=== PATIENT | female | born 1940 | race Caucasian/White ===

== ENCOUNTER 2017-06-18 13:15 | Outpatient (CLI) | payer MEDICARE, OTHER ==
--- NOTE | 2017-06-18 14:59 | RAD ---
TWO VIEW CHEST: Comparison: 11-20-16 Clinical history: Dyspnea. FINDINGS: There are abnormal multifocal patchy airspace opacities involving the linear parenchymal densities wi thin each lung. Findings are not significantly changed from November 2016. An enlarged cardiac silho uette is re-demonstrated. Stable prominence of the hilar regions. IMPRESSION: Stable radiographic appearance of the chest with re-demonstration of multifocal parenchymal opacities throughout each lung. Recommend clinical correlation. Imaging follow up would also prove useful. POS: JE
== END 2017-06-18 13:16 | disposition home or self-care (01) ==
LOC: RAD 13:15
PROVIDERS: ATTEND Internal Medicine Critical Care Medicine
DX: R06.00 Dyspnea, unspecified (principal); R91.8 Other nonspecific abnormal finding of lung field
CPT/HCPCS: 71046

== ENCOUNTER 2017-08-15 08:52 | Outpatient (CLI) | payer MEDICARE, OTHER | END 2017-08-15 08:53 | disposition home or self-care (01) | LOC: CP 08:52 | PROVIDERS: ATTEND Internal Medicine Critical Care Medicine | DX: J84.10 Pulmonary fibrosis, unspecified (principal); J98.4 Other disorders of lung | CPT/HCPCS: 94060; 94727; 94729 ==

== ENCOUNTER 2017-09-17 09:25 | Outpatient (CLI) | payer MEDICARE, OTHER | END 2017-09-17 09:26 | disposition home or self-care (01) | LOC: BICMAMMO 09:25 | PROVIDERS: ATTEND Obstetrics & Gynecology | DX: Z12.31 Encounter for screening mammogram for malignant neoplasm of breast (principal); Z13.820 Encounter for screening for osteoporosis; M81.0 Age-related osteoporosis without current pathological fracture | CPT/HCPCS: 77063; 77067; 77080 ==

== ENCOUNTER 2018-02-11 10:45 | Outpatient (CLI) | payer MEDICARE, OTHER ==
--- NOTE | 2018-02-11 15:52 | RAD ---
CHEST TWO VIEWS: INDICATIONS: History of dyspnea. FINDINGS: The area of interstitial fibrotic change and scarring involving both lungs is stable. There are mult ifocal areas of patchy nodular densities throughout both lungs, which is stable. This is seen predom inantly in the lower lobes. CT followup is recommended for additional characterization. There is st able moderate cardiomegaly. IMPRESSION: 1. Stable patchy areas of nodular parenchymal opacities seen throughout both lungs, predominantly in the lower lobe. Dedicated CT of the thorax is recommended for additional evaluation. 2. Stable moderate cardiomegaly. 3. Stable emphysematous change. POS: [facility]
== END 2018-02-11 10:46 | disposition home or self-care (01) ==
LOC: RAD 10:45
PROVIDERS: ATTEND Internal Medicine Critical Care Medicine
DX: R06.00 Dyspnea, unspecified (principal); I51.7 Cardiomegaly; R91.8 Other nonspecific abnormal finding of lung field
CPT/HCPCS: 71046

== ENCOUNTER 2018-08-05 08:50 | Outpatient (CLI) | payer MEDICARE, OTHER ==
--- NOTE | 2018-08-05 09:28 | RAD ---
CHEST 2 VIEWS: Date: 08/05/18 HISTORY: Dyspnea. COMPARISON: 02/11/18. FINDINGS: Stable linear and reticulonodular parenchymal changes noted bilaterally. Heart size is upper range of normal. No confluent pneumonia, overt edema, or pleural effusion. Stable right reverse shoulder arth roplasty. IMPRESSION: Stable bilateral chronic lung changes. Borderline size heart. No significant acute process. POS: [facility]
== END 2018-08-05 08:51 | disposition home or self-care (01) ==
LOC: RAD 08:50
PROVIDERS: ATTEND Internal Medicine Critical Care Medicine
DX: R06.00 Dyspnea, unspecified (principal)
CPT/HCPCS: 71046

== ENCOUNTER 2018-09-30 10:48 | Outpatient (CLI) | payer MEDICARE, OTHER ==
--- NOTE | 2018-09-30 12:55 | MMO ---
Bilateral MAMMO Bilat Screen [facility]. CLINICAL HISTORY: Patient is 78 years old and is seen for screening. The patient has no family history of breast cancer. The patient has no personal history of cancer. The patient has a history of right Excisional Biopsy more than 10 years ago - benign. VIEWS: The views performed were: bilateral craniocaudal with tomosynthesis; bilateral mediolateral oblique with tomosynthesis; and left craniocaudal. FILMS COMPARED: The present examination has been compared to a prior imaging study performed at [facility] on 09/17/2017. MAMMOGRAM FINDINGS: There are scattered fibroglandular densities. There are stable benign appearing calcifications seen in both breasts. There are no suspicious masses, suspicious calcifications, or new areas of architectural distortion. IMPRESSION: THERE IS NO MAMMOGRAPHIC EVIDENCE OF MALIGNANCY. A ROUTINE FOLLOW-UP MAMMOGRAM IN 1 YEAR IS RECOMMENDED. THE RESULTS OF THIS EXAM WERE SENT TO THE PATIENT. ACR BI-RADS Category 2 - Benign finding MAMMOGRAPHY NOTE: 1. A negative mammogram report should not delay a biopsy if a dominant of clinically suspicious mass is present. 2. Approximately 10% to 15% of breast cancers are not detected by mammography. 3. Adenosis and dense breasts may obscure an underlying neoplasm. Reported by: KARINA ALVARADO MD Electonically Signed: [id number]
== END 2018-09-30 10:49 | disposition home or self-care (01) ==
LOC: BICMAMMO 10:48
PROVIDERS: ATTEND Internal Medicine
DX: Z12.31 Encounter for screening mammogram for malignant neoplasm of breast (principal); Z91.89 Other specified personal risk factors, not elsewhere classified
CPT/HCPCS: 77063; 77067

== ENCOUNTER 2019-01-29 10:38 | Outpatient (CLI) | payer MEDICARE, OTHER ==
--- NOTE | 2019-01-29 10:57 | RAD ---
EXAM: Chest PA and lateral: HISTORY: Dyspnea COMPARISON: 08/05/2018 FINDINGS: Heart: Cardiomegaly. Aorta: Atherosclerosis of the aorta Pulmonary vessels: Normal Costophrenic angles: Costophrenic angles are clear. Lungs: Stable linear opacities throughout the lung parenchyma. Persistent opacity in the medial right upper lobe. Hyperinflation Pneumothorax: No pneumothorax Osseous structures: No acute osseous abnormalities. Right shoulder arthroplasty is noted. IMPRESSION: No significant interval change. Stable opacification the lung parenchyma.
== END 2019-01-29 10:39 | disposition home or self-care (01) ==
LOC: RAD 10:38
PROVIDERS: ATTEND Internal Medicine Critical Care Medicine
DX: R06.00 Dyspnea, unspecified (principal); R91.8 Other nonspecific abnormal finding of lung field
CPT/HCPCS: 71046

== ENCOUNTER 2019-07-28 10:29 | Outpatient (CLI) | payer MEDICARE, OTHER ==
--- NOTE | 2019-07-28 11:19 | RAD ---
EXAM: Chest PA and lateral: HISTORY: Dyspnea COMPARISON: 07/09/2014, 01/29/2019 FINDINGS: Heart: Upper normal cardiac silhouette. Aorta: Atherosclerosis Pulmonary vessels: Normal Costophrenic angles: Costophrenic angles are clear. Lungs: Chronic lung parenchymal changes, without mass or consolidation. Persistent opacification the medial right upper lobe. Pneumothorax: No pneumothorax Osseous structures: Redemonstration of a right humeral prosthesis IMPRESSION: 1. Atherosclerosis 2. Chronic lung parenchymal changes. 3. No acute cardiopulmonary process.
== END 2019-07-28 10:30 | disposition home or self-care (01) ==
LOC: RAD 10:29
PROVIDERS: ATTEND Internal Medicine Critical Care Medicine
DX: R06.00 Dyspnea, unspecified (principal); I70.0 Atherosclerosis of aorta; J98.4 Other disorders of lung
CPT/HCPCS: 71046

== ENCOUNTER 2019-10-06 10:49 | Outpatient (CLI) | payer MEDICARE, OTHER ==
--- NOTE | 2019-10-06 11:18 | MMO ---
Bilateral MAMMO Bilat Screen [facility]. CLINICAL HISTORY: Patient is 79 years old and is seen for screening. The patient has no family history of breast cancer. The patient has no personal history of cancer. The patient has a history of right Excisional Biopsy more than 10 years ago - benign. VIEWS: The views performed were: bilateral craniocaudal with tomosynthesis and bilateral mediolateral oblique with tomosynthesis. FILMS COMPARED: The present examination has been compared to prior imaging studies performed at [facility] on 09/17/2017 and 09/30/2018. This study has been interpreted with the assistance of computer-aided detection. MAMMOGRAM FINDINGS: There are scattered fibroglandular densities. There are stable benign appearing calcifications seen in both breasts. There are also vascular calcifications. There are no suspicious masses, suspicious calcifications, or new areas of architectural distortion. IMPRESSION: THERE IS NO MAMMOGRAPHIC EVIDENCE OF MALIGNANCY. A ROUTINE FOLLOW-UP MAMMOGRAM IN 1 YEAR IS RECOMMENDED. THE RESULTS OF THIS EXAM WERE SENT TO THE PATIENT. ACR BI-RADS Category 2 - Benign finding MAMMOGRAPHY NOTE: 1. A negative mammogram report should not delay a biopsy if a dominant of clinically suspicious mass is present. 2. Approximately 10% to 15% of breast cancers are not detected by mammography. 3. Adenosis and dense breasts may obscure an underlying neoplasm. Reported by: STELLA QURESHI MD Electonically Signed: [id number]
== END 2019-10-06 10:50 | disposition home or self-care (01) ==
LOC: BICMAMMO 10:49
PROVIDERS: ATTEND Internal Medicine
DX: Z12.31 Encounter for screening mammogram for malignant neoplasm of breast (principal); Z91.89 Other specified personal risk factors, not elsewhere classified
CPT/HCPCS: 77063; 77067

== ENCOUNTER 2020-02-10 10:20 | Outpatient (CLI) | payer MEDICARE, OTHER ==
--- NOTE | 2020-02-10 10:51 | RAD ---
Chest 2 views HISTORY: Dyspnea. Follow-up. COMPARISON: 07/28/2019. FINDINGS: Cardiac silhouette is upper limits of normal in size. Pulmonary vasculature are unremarkabl e. Mediastinum is midline with aortic calcification. Scattered areas of linear parenchymal scarring are again demonstrated. Peripheral linear interstitial thickening is more pronounced than on the prior study. Lungs remain hyperinflated. No lobar consolidation, pleural fluid, or pneumothorax are apparent. Prominent degenerative changes o f the thoracic spine. Right shoulder prosthesis partially visualized. IMPRESSION : Interval radiographic progression of peripheral interstitial thickening/lung disease. Findings are otherwise stable.
== END 2020-02-10 10:21 | disposition home or self-care (01) ==
LOC: BICRAD 10:20
PROVIDERS: ATTEND Internal Medicine Critical Care Medicine
DX: R06.00 Dyspnea, unspecified (principal)
CPT/HCPCS: 71046

== ENCOUNTER 2020-05-12 14:52 | Emergency (ER) | payer MEDICARE, OTHER ==
--- NOTE | 2020-05-12 16:37 | RAD ---
EXAM: 3 views of the lumbosacral spine HISTORY: Low back pain since Saturday evening COMPARISON: None FINDINGS: 3 views of the lumbosacral spine shows normal height and alignment of the vertebral bodies and intervertebral discs without fracture or subluxation. Moderate osteophyte formation is seen throughout the lumbar spine. Posterior facet arthrosis is seen in the lower lumbosacral spine. The sacroiliac joints are unremarkable. There is a calcification the right abdomen. This could repres ent a gallstone or renal calcification. Vascular calcifications are seen. IMPRESSION: Moderate degenerative changes of the lumbar spine without acute osseous abnormality.
--- NOTE | 2020-05-12 18:30 | MRI ---
MR the lumbar spine without contrast INDICATION: Low back pain COMPARISON: Lumbar spinal radiographs dated May 12, 2020 TECHNIQUE: Multiplanar multisequence MR images were obtained of lumbar spine without IV contrast. FINDINGS: Bone marrow: There is an acute mild right lateral superior endplate compression abnormality of L2 on image 8 of series 4 and image 8 of series 3. There are chronic superior endplate compression abnormalities involving T11 and T12. Distal spinal cord and conus: Normal. The conus seen to terminate at L1. Visualized retroperitoneum and paraspinal soft tissues: There is a 1.1 cm T2 hyperintense lesion seen within the medial aspect of the posterior mid right kidney. No hydronephrosis is evident. No free fluid is evident. There are scattered colonic diverticulosis. Vertebral levels: L5-S1: There is an asymmetric to the right broad-based disc bulge with facet osteoarthrosis inducing moderate narrowing of the right lateral recess with contact and potential for impingement of the traversing right S1 nerve root. There is mild right neural foraminal narrowing.. L4-5: No appreciable central canal or neuroforaminal narrowing. L3-4: There is a broad-based disc osteophyte complex with facet hypertrophy inducing mild central can al narrowing and mild right neural foraminal narrowing. L2-3: There is a broad-based disc osteophyte complex inducing inducing mild central canal narrowing m ild bilateral neural foraminal narrowing. L1-L2: There is a mild broad-based bulge but no appreciable central canal or neural foraminal narrowi ng. T12-L1: There is a broad-based disc osteophyte complex without appreciable central canal narrowing. T here is mild right neural foraminal narrowing. IMPRESSION: 1. Acute mild right lateral superior endplate compression abnormality of L2. 2. Chronic T11 and T12 compression abnormalities. 3. Moderate lumbar spondylosis. There is moderate right lateral recess narrowing at L5-S1 with contac t and potential for impingement of the traversing right S1 nerve root due to a broad-based disc bulge and facet hypertrophy. Mild right neural foraminal narrowing is seen at L5-S1, L3-4 and T12-L1. There is mild bilateral neural foraminal narrowing at L2-3. 4. T2 hyperintensity within the right mid kidney is incompletely characterized. Nonemergent follow-up renal ultrasound is recommended for additional characterization.
[2020-05-12] MEDS ORDERED: Morphine 4 MG/ML VIAL ONE (21:27)
== END 2020-05-12 22:01 | disposition home or self-care (01) ==
LOC: ERS 14:52
DX: M48.56XA Collapsed vertebra, not elsewhere classified, lumbar region, initial encounter for fracture (principal); E78.5 Hyperlipidemia, unspecified; I10 Essential (primary) hypertension
CPT/HCPCS: 72100; 72148; 96372; J2270

== ENCOUNTER 2020-09-14 12:57 | Outpatient (CLI) | payer MEDICARE, OTHER | END 2020-09-14 12:58 | disposition home or self-care (01) | LOC: BICRAD 12:57 | PROVIDERS: ATTEND Internal Medicine Critical Care Medicine | DX: R06.00 Dyspnea, unspecified (principal); J84.10 Pulmonary fibrosis, unspecified | CPT/HCPCS: 71046 ==

== ENCOUNTER 2021-02-09 15:37 | Inpatient (IN) | payer MEDICARE, OTHER ==
[2021-02-09] MEDS ORDERED: Morphine 4 MG/ML VIAL ONE (15:52)
[2021-02-09 16:19] LABS: #Basophils 0.1 thou/uL (0.0-0.2); #Eosinphils 0.4 thou/uL (0.0-0.7); #Lymphocytes 2.1 thou/uL (1.20-3.40); #Monocytes 0.9 thou/uL (0.11-0.59); #Neutrophils 4.7 thou/uL (1.40-6.50); %Basophils 0.7 % (0.0-1.0); %Eosinophils 5.1 % (0.0-10.0); %Lymphocytes 26.1 % (21.0-51.0); %Monocytes 10.4 % (0.0-10.0); %Neutrophils 57.7 % (42.0-75.0); Hemoglobin 11.1 g/dL (12.0-16.0); Mean Corpuscular Hemoglobin 27.2 pg (27.0-31.0); Mean Corpuscular Volume 85.2 fL (78.0-98.0); Mean Platelet Volume 8.4 fL (7.4-10.4); Platelet Count 232 thou/uL (130-400); RBC Distribution Width 16.2 % (11.5-14.5); Red Blood Cell (RBC) Count 4.07 mill/uL (4.20-5.40); White Blood Cell (WBC) Count 8.2 thou/uL (4.8-10.8)
[2021-02-09 16:30] LABS: PTT 43.2 sec (22.9-36.1); Prothrombin Time 23.2 sec (12.0-14.7)
[2021-02-09 16:41] LABS: ALT (SGPT) 14 U/L (8-55); AST (SGOT) 25 U/L (5-34); Albumin 3.6 g/dL (3.4-4.8); Alkaline Phosphatase 112 U/L (40-110); Anion Gap 16 mmol/L (10-20); BUN (Urea Nitrogen) 42 mg/dL (9.8-20.1); Bilirubin, Total 0.6 mg/dL (0.2-1.2); Calc. Creatinine Clearance 0 mL/min (70-130); Calcium 9.3 mg/dL (7.8-10.44); Carbon Dioxide 25 mmol/L (23-31); Chloride 103 mmol/L (98-107); Globulin 4.6 g/dL (2.4-3.5); Glucose 108 mg/dL (83-110); Potassium 4.4 mmol/L (3.5-5.1); Protein, Total 8.2 g/dL (5.8-8.1); Sodium 140 mmol/L (136-145)
[2021-02-09] MEDS ORDERED: Ondansetron PF 4 MG/2 ML Vial IVP PRN (16:47)
[2021-02-09] MEDS ORDERED: hydrALAZINE 20 MG/ML VIAL SLOW IVP PRN (16:49)
[2021-02-09] MEDS ORDERED: Morphine 4 MG/ML VIAL SLOW IVP PRN (16:52)
[2021-02-09] MEDS ORDERED: traMADol HCl 50 MG TAB PO PRN (16:53)
[2021-02-09] MEDS ORDERED: Cyclobenzaprine 10 MG TAB PO PRN (16:53)
[2021-02-09 17:49] LABS: SARS-CoV-2 NAA Rapid Test Not Detected (NotDetected)
[2021-02-09 18:44] VITALS: BMI 32.1
[2021-02-09] MEDS: traMADol HCl 50 MG TAB PO SCH (18:56)
[2021-02-09] MEDS: Acetaminophen 500 MG TAB PO SCH ×2 (18:56→22:49)
[2021-02-09] MEDS: Gabapentin 100 MG CAP PO SCH (21:06)
[2021-02-09] MEDS: Senokot S 8.6-50 MG TAB PO SCH (21:07)
[2021-02-09] MEDS: Sodium Chloride 0.9% 1,000 ML IV SCH (21:08)
[2021-02-09] MEDS: Famotidine/PF 20 mg/2ml Vial SLOW IVP SCH (21:08)
[2021-02-10] MEDS: traMADol HCl 50 MG TAB PO SCH (00:15)
[2021-02-10] MEDS ORDERED: traMADol HCl 50 MG TAB PO PRN ×2 (04:07)
[2021-02-10] MEDS: Sodium Chloride 0.9% 1,000 ML IV SCH (04:38)
[2021-02-10 05:57] LABS: #Basophils 0.1 thou/uL (0.0-0.2); #Eosinphils 0.4 thou/uL (0.0-0.7); #Lymphocytes 1.8 thou/uL (1.20-3.40); #Monocytes 0.9 thou/uL (0.11-0.59); #Neutrophils 3.7 thou/uL (1.40-6.50); %Basophils 1.1 % (0.0-1.0); %Eosinophils 5.2 % (0.0-10.0); %Lymphocytes 26.8 % (21.0-51.0); %Monocytes 13.2 % (0.0-10.0); %Neutrophils 53.8 % (42.0-75.0); Hemoglobin 9.5 g/dL (12.0-16.0); Mean Corpuscular HGB CONC 32.5 g/dL (32.0-36.0); Mean Corpuscular Volume 86.1 fL (78.0-98.0); Mean Platelet Volume 7.8 fL (7.4-10.4); Platelet Count 202 thou/uL (130-400); RBC Distribution Width 16.2 % (11.5-14.5); Red Blood Cell (RBC) Count 3.38 mill/uL (4.20-5.40); White Blood Cell (WBC) Count 6.8 thou/uL (4.8-10.8)
[2021-02-10] MEDS: Acetaminophen 500 MG TAB PO SCH ×4 (06:05→23:06)
[2021-02-10 06:22] LABS: Anion Gap 10 mmol/L (10-20); BUN (Urea Nitrogen) 43 mg/dL (9.8-20.1); Calc. Creatinine Clearance 44 mL/min (70-130); Calcium 8.7 mg/dL (7.8-10.44); Carbon Dioxide 28 mmol/L (23-31); Chloride 104 mmol/L (98-107); Glucose 99 mg/dL (83-110); Potassium 3.6 mmol/L (3.5-5.1); Sodium 138 mmol/L (136-145)
[2021-02-10] MEDS ORDERED: Ferrous Sulfate 325 MG TAB PO SCH (08:00)
[2021-02-10] MEDS: Baclofen 10 MG TAB PO SCH ×2 (08:56→20:20)
[2021-02-10] MEDS: Ascorbic Acid 500 mg Chewable Tablet PO SCH ×2 (08:56→20:19)
[2021-02-10] MEDS: Gabapentin 100 MG CAP PO SCH ×3 (08:57→20:20)
[2021-02-10] MEDS: Senokot S 8.6-50 MG TAB PO SCH ×2 (08:57→20:19)
[2021-02-10] MEDS: Polyethylene Glycol 3350 17 GM Packet PO SCH (08:57)
[2021-02-10] MEDS: Torsemide 100 MG TAB PO SCH (08:58)
[2021-02-10] MEDS ORDERED: ceFAZolin Sodium (SDC) 2 GM/100 ML BAG ONE (09:32)
[2021-02-10] MEDS ORDERED: Sodium Chloride 0.9% 100 ML ONE ×2 (09:33→09:36)
[2021-02-10] MEDS ORDERED: Tranexamic Acid 1,000 MG/10 ML VIAL ONE ×2 (09:33→09:35)
[2021-02-10] MEDS ORDERED: Famotidine/PF 20 mg/2ml Vial ONE (09:40)
[2021-02-10] MEDS ORDERED: Fentanyl 100 MCG/2 ML VIAL ONE (09:40)
[2021-02-10] MEDS ORDERED: Ketorolac Tromethamine 30 MG/ML VIAL ONE (10:03)
[2021-02-10] MEDS ORDERED: Lidocaine 1% PF 5 ML VIAL ONE (10:03)
[2021-02-10] MEDS ORDERED: Dexamethasone 20 MG/5 ML VIAL ONE (10:03)
[2021-02-10] MEDS ORDERED: Metoclopramide HCl 10 MG/2 ML VIAL ONE (10:03)
[2021-02-10] MEDS ORDERED: PROPOFOL 200 MG/20 ML VIAL ONE (10:03)
[2021-02-10] MEDS ORDERED: ePHEDrine 50 MG/ML VIAL ONE (10:03)
[2021-02-10] MEDS ORDERED: Ondansetron PF 4 MG/2 ML Vial ONE (10:03)
[2021-02-10] MEDS ORDERED: PHENYLEPHRINE-NS 100 MCG/ML 10 ML SYRINGE ONE ×2 (10:03)
[2021-02-10] MEDS ORDERED: Ondansetron ODT 4 MG TAB PO PRN (11:23)
[2021-02-10] MEDS ORDERED: Bisacodyl 10 MG SUPP PR PRN (11:23)
[2021-02-10] MEDS ORDERED: Milk Of Magnesia 30 ML UDCUP PO PRN (11:23)
[2021-02-10] MEDS ORDERED: Ondansetron PF 4 MG/2 ML Vial IVP PRN (11:23)
[2021-02-10] MEDS ORDERED: Cepastat Lozenges 1 LOZ PO PRN (11:23)
[2021-02-10] MEDS: CEFAZOLIN 2 GM, Admixture Fee 1 EACH in Sodium Chloride 0.9% 100 ML IVPB SCH (20:17)
[2021-02-10] MEDS: Ferrous Gluconate 324 MG TAB PO SCH (20:20)
[2021-02-10] MEDS: Famotidine/PF 20 mg/2ml Vial SLOW IVP SCH (20:24)
[2021-02-11] MEDS: CEFAZOLIN 2 GM, Admixture Fee 1 EACH in Sodium Chloride 0.9% 100 ML IVPB SCH (02:52)
[2021-02-11] MEDS: Acetaminophen 500 MG TAB PO SCH ×3 (05:07→17:29)
[2021-02-11 06:51] LABS: Hemoglobin 9.2 g/dL (12.0-16.0); Mean Corpuscular Hemoglobin 27.7 pg (27.0-31.0); Mean Corpuscular Volume 86.7 fL (78.0-98.0); Mean Platelet Volume 8.3 fL (7.4-10.4); Platelet Count 171 thou/uL (130-400); RBC Distribution Width 16.1 % (11.5-14.5); Red Blood Cell (RBC) Count 3.31 mill/uL (4.20-5.40); White Blood Cell (WBC) Count 8.1 thou/uL (4.8-10.8)
[2021-02-11 06:52] LABS: Anion Gap 10 mmol/L (10-20); BUN (Urea Nitrogen) 42 mg/dL (9.8-20.1); Calc. Creatinine Clearance 52 mL/min (70-130); Calcium 8.2 mg/dL (7.8-10.44); Carbon Dioxide 29 mmol/L (23-31); Chloride 104 mmol/L (98-107); Glucose 119 mg/dL (83-110); Magnesium 2.2 mg/dL (1.6-2.6); Sodium 139 mmol/L (136-145)
[2021-02-11 07:13] LABS: Band 1 % (5-11); Lymphocytes 20 % (21-51); MDiff Complete? YES; Monocytes 6 % (0-10); Neutrophil 73 % (42-75); Platelet Morphology Comment Appears Adequate; RBC Morphology Normal
[2021-02-11] MEDS ORDERED: Rivaroxaban 15 MG TAB PO SCH (09:00)
[2021-02-11] MEDS: Polyethylene Glycol 3350 17 GM Packet PO SCH (09:05)
[2021-02-11] MEDS: Ascorbic Acid 500 mg Chewable Tablet PO SCH ×2 (09:05→20:23)
[2021-02-11] MEDS: Baclofen 10 MG TAB PO SCH ×2 (09:05→20:23)
[2021-02-11] MEDS: Pregabalin 50 MG CAP PO SCH ×2 (09:05→20:23)
[2021-02-11] MEDS: Senokot S 8.6-50 MG TAB PO SCH ×2 (09:05→20:23)
[2021-02-11] MEDS: Ferrous Gluconate 324 MG TAB PO SCH ×2 (09:06→20:23)
[2021-02-11] MEDS: Multivitamin W/ Minerals 1 TAB PO SCH (09:06)
[2021-02-11] MEDS: Rivaroxaban 15 MG TAB PO SCH ×2 (09:07→09:23)
[2021-02-11] MEDS: Torsemide 100 MG TAB PO SCH (09:10)
[2021-02-11] MEDS: Famotidine/PF 20 mg/2ml Vial SLOW IVP SCH (20:23)
[2021-02-12] MEDS: Acetaminophen 500 MG TAB PO SCH ×3 (00:13→14:35)
[2021-02-12] MEDS ORDERED: Rivaroxaban 15 MG TAB PO SCH (08:00)
[2021-02-12] MEDS: Ferrous Gluconate 324 MG TAB PO SCH (09:06)
[2021-02-12] MEDS: Ascorbic Acid 500 mg Chewable Tablet PO SCH (09:06)
[2021-02-12] MEDS: Multivitamin W/ Minerals 1 TAB PO SCH (09:06)
[2021-02-12] MEDS: Senokot S 8.6-50 MG TAB PO SCH (09:06)
[2021-02-12] MEDS: Pregabalin 50 MG CAP PO SCH (09:06)
[2021-02-12] MEDS: Polyethylene Glycol 3350 17 GM Packet PO SCH (09:07)
[2021-02-12] MEDS: Baclofen 10 MG TAB PO SCH (09:07)
[2021-02-12] MEDS: Torsemide 100 MG TAB PO SCH (10:03)
[2021-02-12 15:37] VITALS: BP 148/75; TEMP 97.5
[2021-02-12] MEDS ORDERED: Amlodipine 10 MG TAB PO SCH (21:00)
== END 2021-02-12 16:48 | DRG 481 ==
LOC: ERS 15:37 → SURG B 16:47
PROVIDERS: ADMIT Surgery; ATTEND Surgery
PROC: 0QS704Z Reposition Left Upper Femur with Internal Fixation Device, Open Approach (ICD-10-PCS; principal; 2021-02-10)
DX: S72.142A Displaced intertrochanteric fracture of left femur, initial encounter for closed fracture (principal); D62 Acute posthemorrhagic anemia; N17.9 Acute kidney failure, unspecified; Z20.822 Contact with and (suspected) exposure to COVID-19; I48.91 Unspecified atrial fibrillation; N18.9 Chronic kidney disease, unspecified; I12.9 Hypertensive chronic kidney disease with stage 1 through stage 4 chronic kidney disease, or unspecified chronic kidney disease; W18.30XA Fall on same level, unspecified, initial encounter; E78.5 Hyperlipidemia, unspecified; R79.1 Abnormal coagulation profile; T45.515A Adverse effect of anticoagulants, initial encounter; Z88.0 Allergy status to penicillin; Y92.009 Unspecified place in unspecified non-institutional (private) residence as the place of occurrence of the external cause; Z79.01 Long term (current) use of anticoagulants
CPT/HCPCS: 36415; 70450; 71045; 72170; 76000; 80048; 80053; 83735; 84311; 85007; 85025; 85027; 85610; 85730; 86850; 86900; 86901; 93005; 96374; C1713; G0390; J0690; J1100; J1885; J2270; J2405; J2704; J2765; J3010; J3490; J7050; S0028; U0002

== ENCOUNTER 2021-03-23 12:19 | Emergency (ER) | payer MEDICARE, OTHER ==
[2021-03-23 12:51] LABS: #Basophils 0.1 thou/uL (0.0-0.2); #Eosinphils 0.3 thou/uL (0.0-0.7); #Lymphocytes 1.9 thou/uL (1.20-3.40); #Monocytes 0.7 thou/uL (0.11-0.59); #Neutrophils 4.6 thou/uL (1.40-6.50); %Eosinophils 3.8 % (0.0-10.0); %Lymphocytes 24.9 % (21.0-51.0); %Monocytes 9.5 % (0.0-10.0); %Neutrophils 60.8 % (42.0-75.0); Hemoglobin 11.5 g/dL (12.0-16.0); Mean Corpuscular HGB CONC 32.3 g/dL (32.0-36.0); Mean Corpuscular Hemoglobin 28.9 pg (27.0-31.0); Mean Corpuscular Volume 89.3 fL (78.0-98.0); Mean Platelet Volume 7.2 fL (7.4-10.4); Platelet Count 292 thou/uL (130-400); White Blood Cell (WBC) Count 7.6 thou/uL (4.8-10.8)
[2021-03-23 13:22] LABS: ALT (SGPT) 17 U/L (8-55); AST (SGOT) 20 U/L (5-34); Albumin 3.7 g/dL (3.4-4.8); Alkaline Phosphatase 148 U/L (40-110); Anion Gap 12 mmol/L (10-20); BUN (Urea Nitrogen) 16 mg/dL (9.8-20.1); Bilirubin, Total 0.7 mg/dL (0.2-1.2); Calc. Creatinine Clearance 0 mL/min (70-130); Calcium 10.3 mg/dL (7.8-10.44); Carbon Dioxide 28 mmol/L (23-31); Chloride 102 mmol/L (98-107); Globulin 4.4 g/dL (2.4-3.5); Glucose 95 mg/dL (83-110); Lipase 10 U/L (8-78); Protein, Total 8.1 g/dL (5.8-8.1); Sodium 138 mmol/L (136-145)
== END 2021-03-23 15:50 | disposition home or self-care (01) ==
LOC: ERS 12:19
DX: I10 Essential (primary) hypertension (principal); I48.20 Chronic atrial fibrillation, unspecified; I51.7 Cardiomegaly; E78.5 Hyperlipidemia, unspecified; Z79.01 Long term (current) use of anticoagulants; Z79.899 Other long term (current) drug therapy
CPT/HCPCS: 36415; 71045; 80053; 83690; 84484; 85025; 93005; 94760

== ENCOUNTER 2021-10-30 10:49 | Observation (INO) | payer MEDICARE, OTHER ==
[2021-10-30] MEDS ORDERED: Fentanyl 100 MCG/2 ML VIAL ONE (12:07)
[2021-10-30 13:20] LABS: #Basophils 0.1 thou/uL (0.0-0.2); #Eosinphils 0.4 thou/uL (0.0-0.7); #Lymphocytes 1.8 thou/uL (1.20-3.40); #Monocytes 0.7 thou/uL (0.11-0.59); #Neutrophils 6.9 thou/uL (1.40-6.50); %Basophils 0.7 % (0.0-1.0); %Eosinophils 3.7 % (0.0-10.0); %Lymphocytes 17.9 % (21.0-51.0); %Monocytes 6.9 % (0.0-10.0); %Neutrophils 70.7 % (42.0-75.0); Hemoglobin 12.6 g/dL (12.0-16.0); Mean Corpuscular HGB CONC 30.9 g/dL (32.0-36.0); Mean Corpuscular Hemoglobin 29.3 pg (27.0-31.0); Mean Corpuscular Volume 94.8 fL (78.0-98.0); Platelet Count 217 thou/uL (130-400); White Blood Cell (WBC) Count 9.8 thou/uL (4.8-10.8)
[2021-10-30 13:33] LABS: Prothrombin Time 22.6 sec (12.0-14.7)
[2021-10-30 13:39] LABS: Phosphorus 2.8 mg/dL (2.3-4.7)
[2021-10-30 13:42] LABS: ALT (SGPT) 20 U/L (8-55); AST (SGOT) 26 U/L (5-34); Albumin 3.8 g/dL (3.4-4.8); Alkaline Phosphatase 104 U/L (40-110); Anion Gap 13 mmol/L (10-20); BUN (Urea Nitrogen) 31 mg/dL (9.8-20.1); Bilirubin, Total 0.7 mg/dL (0.2-1.2); Calc. Creatinine Clearance 0 mL/min (70-130); Calcium 9.5 mg/dL (7.8-10.44); Carbon Dioxide 28 mmol/L (23-31); Chloride 104 mmol/L (98-107); Estimated GFR 54; Glucose 105 mg/dL (83-110); Magnesium 2.1 mg/dL (1.6-2.6); Potassium 4.1 mmol/L (3.5-5.1); Protein, Total 7.8 g/dL (5.8-8.1); Sodium 141 mmol/L (136-145)
[2021-10-30] MEDS ORDERED: Ondansetron PF 4 MG/2 ML Vial IVP PRN (13:56)
[2021-10-30] MEDS ORDERED: Morphine 2 MG/ML VIAL SLOW IVP PRN (13:56)
[2021-10-30] MEDS ORDERED: Dextrose 5% in Water 1,000 ML IV PRN (13:56)
[2021-10-30] MEDS ORDERED: Dextrose 50% Abboject 50 ML SYRINGE SLOW IVP PRN (13:56)
[2021-10-30] MEDS ORDERED: hydrALAZINE 20 MG/ML VIAL SLOW IVP PRN (13:56)
[2021-10-30] MEDS ORDERED: traMADol HCl 50 MG TAB PO PRN (13:59)
[2021-10-30] MEDS ORDERED: PHOS-NAK 1 PKT PACK PO SCH (14:00)
[2021-10-30] MEDS: Gabapentin 100 MG CAP PO SCH ×2 (16:51→21:35)
[2021-10-30 17:26] LABS: SARS-CoV-2 NAA Rapid Test DETECTED (NotDetected)
[2021-10-30] MEDS: Acetaminophen 500 MG TAB PO SCH (20:17)
[2021-10-30] MEDS: traMADol HCl 50 MG TAB PO SCH (20:18)
[2021-10-30] MEDS: Famotidine 20 MG TAB PO SCH (21:35)
[2021-10-30] MEDS: Ascorbic Acid 500 mg Chewable Tablet PO SCH (21:35)
[2021-10-30] MEDS: Senokot S 8.6-50 MG TAB PO SCH (21:36)
[2021-10-30] MEDS: Pregabalin 50 MG CAP PO SCH (21:36)
[2021-10-30] MEDS: Cyclobenzaprine 10 MG TAB PO PRN (21:37)
[2021-10-31 00:08] VITALS: BMI 29.5
[2021-10-31] MEDS: traMADol HCl 50 MG TAB PO SCH ×4 (00:19→17:46)
[2021-10-31] MEDS: Acetaminophen 500 MG TAB PO SCH ×4 (00:19→17:45)
[2021-10-31 05:43] LABS: #Basophils 0.1 thou/uL (0.0-0.2); #Eosinphils 0.4 thou/uL (0.0-0.7); #Lymphocytes 2.1 thou/uL (1.20-3.40); #Neutrophils 3.9 thou/uL (1.40-6.50); %Basophils 0.7 % (0.0-1.0); %Eosinophils 4.9 % (0.0-10.0); %Lymphocytes 28.2 % (21.0-51.0); %Neutrophils 53.2 % (42.0-75.0); Hemoglobin 10.7 g/dL (12.0-16.0); Mean Corpuscular HGB CONC 31.1 g/dL (32.0-36.0); Mean Corpuscular Hemoglobin 29.3 pg (27.0-31.0); Mean Corpuscular Volume 94.1 fL (78.0-98.0); Mean Platelet Volume 8.4 fL (7.4-10.4); Platelet Count 208 thou/uL (130-400); RBC Distribution Width 13.8 % (11.5-14.5); Red Blood Cell (RBC) Count 3.64 mill/uL (4.20-5.40); White Blood Cell (WBC) Count 7.3 thou/uL (4.8-10.8)
[2021-10-31 06:12] LABS: Anion Gap 13 mmol/L (10-20); BUN (Urea Nitrogen) 22 mg/dL (9.8-20.1); Calc. Creatinine Clearance 72 mL/min (70-130); Calcium 8.6 mg/dL (7.8-10.44); Carbon Dioxide 26 mmol/L (23-31); Chloride 106 mmol/L (98-107); Estimated GFR 75; Glucose 109 mg/dL (83-110); Phosphorus 3.1 mg/dL (2.3-4.7); Potassium 3.9 mmol/L (3.5-5.1); Sodium 141 mmol/L (136-145)
[2021-10-31] MEDS ORDERED: Ferrous Sulfate 325 MG TAB PO SCH (08:00)
[2021-10-31] MEDS ORDERED: Enoxaparin Sodium 40 MG/0.4 ML SYRINGE SC SCH (09:00)
[2021-10-31] MEDS: Pregabalin 50 MG CAP PO SCH ×2 (09:28→22:15)
[2021-10-31] MEDS: Calcium Carbonate 500 MG TAB PO SCH (09:29)
[2021-10-31] MEDS: Ferrous Sulfate 325 MG TAB PO SCH (09:29)
[2021-10-31] MEDS: Multivitamin W/ Minerals 1 TAB PO SCH (09:29)
[2021-10-31] MEDS: Famotidine 20 MG TAB PO SCH ×2 (09:29→22:15)
[2021-10-31] MEDS: Ascorbic Acid 500 mg Chewable Tablet PO SCH ×2 (09:29→22:15)
[2021-10-31] MEDS: Gabapentin 100 MG CAP PO SCH ×3 (09:30→22:15)
[2021-10-31] MEDS: Senokot S 8.6-50 MG TAB PO SCH ×2 (09:32→22:14)
[2021-10-31] MEDS: Carvedilol 6.25 MG TAB PO SCH (09:34)
[2021-10-31] MEDS: Polyethylene Glycol 3350 17 GM Packet PO SCH (09:44)
[2021-10-31] MEDS: BIOTENE MOUTH SPRAY 44.3 ML PO SCH (15:38)
[2021-10-31] MEDS ORDERED: Rivaroxaban 15 MG TAB PO SCH (17:00)
[2021-10-31] MEDS: Cyclobenzaprine 10 MG TAB PO PRN (22:16)
[2021-11-01] MEDS: Acetaminophen 500 MG TAB PO SCH ×3 (00:10→12:34)
[2021-11-01] MEDS: traMADol HCl 50 MG TAB PO SCH ×3 (00:11→12:35)
[2021-11-01] MEDS: Multivitamin W/ Minerals 1 TAB PO SCH (09:40)
[2021-11-01] MEDS: Calcium Carbonate 500 MG TAB PO SCH (09:42)
[2021-11-01] MEDS: Carvedilol 6.25 MG TAB PO SCH (09:42)
[2021-11-01] MEDS: Senokot S 8.6-50 MG TAB PO SCH ×2 (09:43→09:44)
[2021-11-01] MEDS: Pregabalin 50 MG CAP PO SCH (09:43)
[2021-11-01] MEDS: Ferrous Sulfate 325 MG TAB PO SCH (09:44)
[2021-11-01] MEDS: Famotidine 20 MG TAB PO SCH (09:45)
[2021-11-01] MEDS: Ascorbic Acid 500 mg Chewable Tablet PO SCH (09:45)
[2021-11-01] MEDS: Gabapentin 100 MG CAP PO SCH ×2 (09:45→14:41)
[2021-11-01] MEDS: Polyethylene Glycol 3350 17 GM Packet PO SCH (09:45)
[2021-11-01] MEDS: BIOTENE MOUTH SPRAY 44.3 ML PO SCH (09:46)
[2021-11-01 12:20] VITALS: BP 126/65; TEMP 98.3
== END 2021-11-01 14:45 | disposition home or self-care (01) ==
LOC: ERS 10:49 → ERHOLD 13:59 → SURG A 18:59
PROVIDERS: ADMIT Surgery; ATTEND Surgery
DX: M97.31XA Periprosthetic fracture around internal prosthetic right shoulder joint, initial encounter (principal); S42.321A Displaced transverse fracture of shaft of humerus, right arm, initial encounter for closed fracture; U07.1 COVID-19; I11.0 Hypertensive heart disease with heart failure; I50.9 Heart failure, unspecified; I48.91 Unspecified atrial fibrillation; E78.5 Hyperlipidemia, unspecified; Z79.01 Long term (current) use of anticoagulants; Z79.899 Other long term (current) drug therapy; Z88.0 Allergy status to penicillin; Z96.611 Presence of right artificial shoulder joint; W19.XXXA Unspecified fall, initial encounter; Y92.009 Unspecified place in unspecified non-institutional (private) residence as the place of occurrence of the external cause
CPT/HCPCS: 70450; 71045; 72125; 73060; 80048; 80053; 83735 ×2; 84100 ×2; 85025 ×2; 85610; 85730; 93005; 96374; 97530; 97535; 99285; L3980; U0002; 36415; 96372; G0378; G0390; J1650; J3010

== ENCOUNTER 2022-02-21 13:28 | Outpatient (CLI) | payer MEDICARE, OTHER | END 2022-02-21 13:29 | disposition home or self-care (01) | LOC: RAD 13:28 | PROVIDERS: ATTEND Internal Medicine Critical Care Medicine | DX: R06.00 Dyspnea, unspecified (principal); I51.7 Cardiomegaly; J84.10 Pulmonary fibrosis, unspecified | CPT/HCPCS: 71046 ==

== ENCOUNTER 2022-05-11 15:48 | Outpatient (CLI) | payer MEDICARE, OTHER | END 2022-05-11 15:49 | disposition home or self-care (01) | LOC: BICRAD 15:48 | PROVIDERS: ATTEND Nurse Practitioner Family | DX: R05.1 Acute cough (principal) | CPT/HCPCS: 71046 ==

== ENCOUNTER 2022-11-30 08:00 | Inpatient (IN) | payer OTHER | END 2022-11-30 08:01 | disposition E | DRG 951 | LOC: T4-B 08:00 | PROVIDERS: ADMIT Family Medicine; ATTEND Family Medicine | DX: Z51.5 Encounter for palliative care (principal); G93.41 Metabolic encephalopathy; I62.01 Nontraumatic acute subdural hemorrhage; I61.1 Nontraumatic intracerebral hemorrhage in hemisphere, cortical; I60.9 Nontraumatic subarachnoid hemorrhage, unspecified; Z66 Do not resuscitate; N17.9 Acute kidney failure, unspecified; N39.0 Urinary tract infection, site not specified; G81.94 Hemiplegia, unspecified affecting left nondominant side; H57.10 Ocular pain, unspecified eye; R47.81 Slurred speech; I11.0 Hypertensive heart disease with heart failure; I50.9 Heart failure, unspecified; I48.91 Unspecified atrial fibrillation; E78.5 Hyperlipidemia, unspecified; R41.82 Altered mental status, unspecified; R22.0 Localized swelling, mass and lump, head; Z96.611 Presence of right artificial shoulder joint; Z88.0 Allergy status to penicillin; Z79.899 Other long term (current) drug therapy; Z98.890 Other specified postprocedural states ==

== ENCOUNTER 2022-11-30 20:04 | Inpatient (IN) | payer MEDICARE, OTHER ==
[2022-11-30 20:49] LABS: #Basophils 0.1 thou/uL (0.0-0.2); #Eosinphils 0.4 thou/uL (0.0-0.7); #Monocytes 0.7 thou/uL (0.11-0.59); #Neutrophils 4.7 thou/uL (1.40-6.50); %Basophils 1.2 % (0.0-1.0); %Eosinophils 4.9 % (0.0-10.0); %Lymphocytes 26.7 % (21.0-51.0); %Monocytes 8.7 % (0.0-10.0); %Neutrophils 58.1 % (42.0-75.0); Hematocrit 35.7 % (36.0-47.0); Hemoglobin 11.3 g/dL (12.0-16.0); Mean Corpuscular HGB CONC 31.7 g/dL (32.0-36.0); Mean Corpuscular Volume 91.5 fl (78.0-98.0); Platelet Count 236 10x3/uL (130-400); RBC Distribution Width 15.5 % (11.5-14.5); White Blood Cell (WBC) Count 8.2 10x3/uL (4.8-10.8)
[2022-11-30 21:02] LABS: INR-International Normal Ratio 1.5; PTT 31.4 sec (22.9-36.1); Prothrombin Time 19.2 sec (12.0-14.7)
[2022-11-30 21:03] LABS: CRP (Inflammatory) Less than 0.50 mg/dL (= or < 0.5); Lipase 14 U/L (8-78); Magnesium 2.4 mg/dL (1.6-2.6)
[2022-11-30 21:07] LABS: Troponin I 0.018 ng/mL (< 0.028)
[2022-11-30 21:11] LABS: Anion Gap 16 mmol/L (10-20); BUN (Urea Nitrogen) 53 mg/dL (9.8-20.1); Calc. Creatinine Clearance 0 mL/min (70-130); Carbon Dioxide 27 mmol/L (23-31); Chloride 101 mmol/L (98-107); Potassium 4.7 mmol/L (3.5-5.1); Sodium 139 mmol/L (136-145)
[2022-11-30 21:12] LABS: ALT (SGPT) 22 U/L (8-55); AST (SGOT) 27 U/L (5-34); Alkaline Phosphatase 118 U/L (40-110); Bilirubin, Total 0.4 mg/dL (0.2-1.2); CK (CPK) 50 U/L (29-168); Calcium 9.8 mg/dL (7.8-10.44); Estimated GFR 20; Globulin 4.2 g/dL (2.4-3.5); Glucose 120 mg/dL (83-110); Protein, Total 8.2 g/dL (5.8-8.1)
[2022-11-30] MEDS ORDERED: Ondansetron PF 4 MG/2 ML Vial IVP PRN ×2 (22:02→23:45)
[2022-11-30] MEDS ORDERED: Lorazepam 2 MG/ML VIAL SLOW IVP PRN ×2 (22:02→23:34)
[2022-11-30] MEDS ORDERED: Scopolamine 1.5 mg/72 hour Patch TOP SCH (23:00)
[2022-11-30] MEDS ORDERED: Morphine 2 MG/ML VIAL SLOW IVP PRN (23:35)
[2022-11-30] MEDS ORDERED: Bisacodyl 10 MG SUPP PR PRN (23:36)
[2022-11-30] MEDS ORDERED: Acetaminophen 325 MG TAB PO PRN (23:45)
[2022-11-30] MEDS ORDERED: diphenhydrAMINE 50 MG/ML VIAL IVP PRN (23:45)
[2022-11-30] MEDS ORDERED: Scopolamine 1.5 mg/72 hour Patch TOP PRN ×2 (23:45)
[2022-12-01 00:28] VITALS: BP 148/78; TEMP 96.5
[2022-12-01] MEDS ORDERED: Atropine Sulfate 1% Ophth Soln 5 ml Bottle SL PRN (01:45)
== END 2022-12-01 02:30 | disposition expired | DRG 64 ==
LOC: ERS 20:04 → ERHOLD 21:25 → T4-B 23:26
PROVIDERS: ADMIT Internal Medicine; ATTEND Internal Medicine
DX: I60.9 Nontraumatic subarachnoid hemorrhage, unspecified (principal); G93.41 Metabolic encephalopathy; G93.6 Cerebral edema; J18.9 Pneumonia, unspecified organism; N17.9 Acute kidney failure, unspecified; N39.0 Urinary tract infection, site not specified; G81.94 Hemiplegia, unspecified affecting left nondominant side; Z51.5 Encounter for palliative care; Z66 Do not resuscitate; R47.81 Slurred speech; I11.0 Hypertensive heart disease with heart failure; I50.9 Heart failure, unspecified; I48.91 Unspecified atrial fibrillation; E78.5 Hyperlipidemia, unspecified; Z96.611 Presence of right artificial shoulder joint; R40.2432 Glasgow coma scale score 3-8, at arrival to emergency department; Z88.0 Allergy status to penicillin; Z79.899 Other long term (current) drug therapy; Z98.890 Other specified postprocedural states; Z86.718 Personal history of other venous thrombosis and embolism
CPT/HCPCS: 36415; 36416; 70450; 71045; 80053; 82550; 83605; 83690; 83735; 84443; 84484; 85025; 85610; 85730; 86140; 86850; 86900; 86901; 93005; 94760; 96360; J2272